=== PATIENT | female | born 1985 | race Caucasian/White ===

== ENCOUNTER 2017-06-09 19:03 | Emergency (ER) | payer MEDICAID, OTHER ==
[~2017-06-09] VITALS: Ht 165.1 cm; Wt 89.1 kg
[~2017-06-09 19:03] MED LIST: ALBU0.0967 IH; AZIT250T11 PO; IBUP-974 PO; PRED20TA6 PO
[2017-06-09 19:07] VITALS: BP 136/87
--- NOTE | 2017-06-09 20:14 | NUR ---
PT TAKEN TO BED 10
--- NOTE | 2017-06-09 20:16 | NUR ---
31Y F BIB [facility] C/O CP X 1 DAY AT REST; PT STATES PAIN IS LEFT UPPER CHEST IN ORIGIN, RADIATING TO THE LEFT SHOULDER AND ARM. PT STATES PAIN IS TIGHT, 7/10. PT HAS NAUSEA NO VOMIT OR DIARRHEA. PT AAOX4. BREATHING IS UNLABORED AND CLEAR.
--- NOTE | 2017-06-09 20:45 | NUR ---
Patient being evaluated by physician at bedside.
--- NOTE | 2017-06-09 21:26 | NUR ---
X-Ray at bedside.
[2017-06-09 21:45] VITALS: BP 118/71
== END 2017-06-09 21:44 | disposition home or self-care (01) ==
LOC: MED 19:03
DX: R07.89 Other chest pain (principal); R06.02 Shortness of breath; J45.909 Unspecified asthma, uncomplicated; Z88.5 Allergy status to narcotic agent; Z88.6 Allergy status to analgesic agent
CPT/HCPCS: 71045; 81002; 81025; 93005; 99284; Q0092

== ENCOUNTER 2018-09-11 09:42 | Emergency (ER) | payer OTHER ==
[~2018-09-11] VITALS: Ht 165.1 cm; Wt 88.6 kg
[2018-09-11 09:47] VITALS: BP 150/91
--- NOTE | 2018-09-11 10:00 | NUR ---
Patient ambulated to bed7 at this time.
--- NOTE | 2018-09-11 10:10 | NUR ---
Patient presented to ED c/o headache radiating to eyes and left ear. +nausea, +vomiting. c/o blurry vision. pt states she uses eyeglasses and doesnt have them with her at this time. Pupils equal and reactive to light bilaterally. No facial droop noted. No smile deficit noted. Clear speech. Patient is alert and oriented to person, place, time and event. Bilateral hand financial brokers equal. Bilateral foot push equal. VSS at this time. Bed in low position, locked, siderail up x1 for safety. Pending ERMD evaluation.
--- NOTE | 2018-09-11 10:44 | NUR ---
Patient being evaluated by Dr. Sykes at bedside.
--- NOTE | 2018-09-11 11:25 | NUR ---
PT TAKEN TO CT VIA WHEELCHAIR.
[2018-09-11 11:29] LABS: BASOPHILS # (AUTO) 0.1 K/uL (0.00-0.22); EOSINOPHILS # (AUTO) 0.1 K/uL (0-0.4); EOSINOPHILS % (AUTO) 2.2 % (0.0-4.0); HEMATOCRIT 38.8 % (36-48); LYMPHOCYTES # (AUTO) 2.3 K/uL (2.5-16.5); LYMPHOCYTES % (AUTO) 40.1 % (20.5-51.1); MEAN CORPUSCULAR HEMOGLOBIN 29 pg (27-31); MEAN CORPUSCULAR HGB CONC 34 g/dL (33-37); MEAN CORPUSCULAR VOLUME 87.5 fL (80-94); MONOCYTES # (AUTO) 0.4 K/uL (0.8-1.0); NEUTROPHILS # (AUTO) 2.9 K/uL (1.8-7.7); NEUTROPHILS % (AUTO) 49.7 % (42.2-75.2); PLATELET COUNT (AUTO) 167 K/uL (140-450); RED BLOOD CELL COUNT(AUTO) 4.44 MIL/uL (4.20-5.40); RED CELL DISTRIBUTION WIDTH 13.1 % (11.6-13.7); WHITE BLOOD COUNT (AUTO) 5.8 K/uL (4.8-10.8)
--- NOTE | 2018-09-11 11:34 | NUR ---
PT BACK FROM CT SCAN.
[2018-09-11 11:39] LABS: ANION GAP 11.3 (8-16); CARBON DIOXIDE 27.7 mmol/L (21-32); CREATININE 0.7 mg/dL (0.6-1.3)
[2018-09-11 11:45] LABS: ALBUMIN 3.6 g/dL (3.4-5.0); TOTAL BILIRUBIN 0.4 mg/dL (0.0-1.0)
--- NOTE | 2018-09-11 12:05 | NUR ---
Patient appears to be resting comfortably in bed. Vital Signs within normal limits. Respirations even and unlabored.
[2018-09-11] MEDS ORDERED: diphenhydrAMINE 50 MG/ML VIAL IVP ONE (12:30)
[2018-09-11] MEDS ORDERED: NACL 0.9% 1,000 ML IV ONE (12:30)
[2018-09-11] MEDS ORDERED: METOCLOPRAMIDE 10 MG/2 ML INJ VIAL IM ONE (12:30)
[2018-09-11] MEDS ORDERED: ACETAMINOPHEN EXTRA STRENGTH 500 MG TAB PO ONE (12:30)
--- NOTE | 2018-09-11 14:15 | NUR ---
PT DENIES ANY PAIN AT THIS TIME. VERBALIZED FEELING BETTER AND WITHOUT NAUSEA.
[2018-09-11 14:55] VITALS: BP 125/78
== END 2018-09-11 14:55 | disposition home or self-care (01) ==
LOC: MED 09:42
DX: G44.209 Tension-type headache, unspecified, not intractable (principal); G43.909 Migraine, unspecified, not intractable, without status migrainosus; J45.909 Unspecified asthma, uncomplicated; Z79.1 Long term (current) use of non-steroidal anti-inflammatories (NSAID); Z79.2 Long term (current) use of antibiotics; Z79.899 Other long term (current) drug therapy; Z88.6 Allergy status to analgesic agent; Z88.5 Allergy status to narcotic agent
CPT/HCPCS: 36415; 70450; 80053; 81002; 81025; 85025; 96361; 96374; 96375; 99284; J1200; J2765; J7030